=== PATIENT | male | born 1985 | race Caucasian/White ===

== ENCOUNTER 2020-05-22 14:27 | Emergency (ER) | payer MEDICAID ==
[~2020-05-22] VITALS: Ht 177.8 cm; Wt 71.4 kg
[2020-05-22 14:32] VITALS: BP 143/92
[2020-05-22] MEDS ORDERED: methadone 10mg tablet PO ONE (15:05)
== END 2020-05-22 15:24 | disposition home or self-care (01) ==
LOC: ER 14:28
DX: F17.200 Nicotine dependence, unspecified, uncomplicated (principal); Z76.0 Encounter for issue of repeat prescription
CPT/HCPCS: 99283

== ENCOUNTER 2020-05-23 13:08 | Emergency (ER) | payer MEDICAID ==
[~2020-05-23] VITALS: Ht 177.8 cm; Wt 72.4 kg
[2020-05-23 13:11] VITALS: BP 128/86
[2020-05-23] MEDS ORDERED: methadone 10mg tablet PO ONE (13:15)
== END 2020-05-23 13:45 | disposition home or self-care (01) ==
LOC: ER 13:09
DX: F11.10 Opioid abuse, uncomplicated (principal); F17.200 Nicotine dependence, unspecified, uncomplicated; Z76.0 Encounter for issue of repeat prescription; Z72.89 Other problems related to lifestyle
CPT/HCPCS: 99283